=== PATIENT | female | born 1995 ===

== ENCOUNTER 2020-09-13 12:18 | Emergency (ER) | payer MEDICAID ==
[2020-09-13 12:28] VITALS: TEMP 98.3
[2020-09-13 13:10] LABS: BASO % 0.3 % (0.0-2.0); EOS % 0.3 % (0-4.0); GRAN # 5.1 (1.4-6.5); GRAN % 67.6 % (42.2-75.2); HEMOGLOBIN 11.9 g/dl (12.5-16.0); LYMPH # 1.9 (1.2-3.4); LYMPH % 24.8 % (20.0-51.0); MEAN CELL VOLUME 93 fl (80.0-100.0); MEAN CORPUSCULAR HEMOGLOBIN 31 pg (27.0-31.0); MEAN CORPUSCULAR HGB CONC 34 g/dl (33.0-37.0); MEAN PLATELET VOLUME 10.2 fl (7.4-10.4); MONO # 0.5 (0.1-0.6); MONO % 6.9 % (1.7-9.3); PLATELET COUNT 190 K/mm3 (130-400); RED BLOOD COUNT 3.79 M/mm3 (4.10-5.30); REDCELL DISTRIBUTION WIDTH-CV 11.8 % (11.5-14.5)
[2020-09-13 13:12] LABS: HEMATOCRIT 35.2 % (37.0-47.0)
[2020-09-13 13:18] LABS: BILIRUBIN,TOTAL 0.3 mg/dL (0.0-1.0); CALCIUM 9.5 mg/dL (8.4-10.2); CREATININE, serum 0.49 (0.52-1.25); POTASSIUM 3.9 mmol/L (3.4-5.0)
[2020-09-13] MEDS ORDERED: VITAMIN B-625 MG PO (13:37)
[2020-09-13] MEDS ORDERED: ONE-A-DAY ESSE1 EACH PO (13:37)
[2020-09-13 14:04] VITALS: BP 117/79; PULSE 72
== END 2020-09-13 14:04 | disposition home or self-care (01) ==
LOC: COL.ER 12:18
PROVIDERS: Emergency Medicine
DX: O26.811 Pregnancy related exhaustion and fatigue, first trimester (principal); R55 Syncope and collapse; O21.9 Vomiting of pregnancy, unspecified; F17.210 Nicotine dependence, cigarettes, uncomplicated; Z3A.11 11 weeks gestation of pregnancy
CPT/HCPCS: J3415; J7030